=== PATIENT | female | born 1990 | race African-American/Black ===

== ENCOUNTER 2021-12-16 14:26 | Emergency (ER) | payer SELFPAY ==
[~2021-12-16 14:26] MED LIST: BIRTH CONTROL; LITH150C PO
== END 2021-12-16 14:43 | disposition left against medical advice (07) ==
LOC: ER 14:26
DX: Z53.21 Procedure and treatment not carried out due to patient leaving prior to being seen by health care provider (principal)

== ENCOUNTER 2022-06-19 06:07 | Emergency (ER) | payer SELFPAY ==
[~2022-06-19] VITALS: Ht 170.2 cm; Wt 70.0 kg
[2022-06-19 08:23] LABS: BASOPHILS % 0.3 % (0.0-2.0); EOSINOPHILS % 0.1 % (0.0-5.0); HEMATOCRIT. 41.6 % (36.0-48.0); HEMOGLOBIN. 13.8 g/dL (12.0-16.0); LYMPHOCYTES % 28.8 % (20.0-50.0); MEAN CORPUSCULAR HEMOGLOBIN 33.8 pg (28.0-32.0); MEAN CORPUSCULAR VOLUME 102.1 fL (81.0-99.0); MEAN PLATELET VOLUME 8.6 fl (7.4-10.4); MONOCYTES % 7.9 % (2.0-8.0); NEUTROPHILS % 62.9 % (40.0-76.0); PLATELET 216 x1000/uL (130-400); RED BLOOD CELL COUNT 4.08 mill/uL (4.2-5.4); RED CELL DISTRIBUTION WIDTH 13.2 % (11.6-14.6)
[2022-06-19] MEDS ORDERED: LORAZEPAM 2MG/ML CPJ IM NR (08:30)
[2022-06-19 08:31] LABS: CHLORIDE 105 mEq/L (98-107)
[2022-06-19 08:35] LABS: HCG SCREEN NEGATIVE
[2022-06-19 08:37] LABS: ETHANOL BLOOD < 10 mg/dL
[2022-06-19] MEDS ORDERED: HALOPERIDOL LACTATE 5MG/ML VIAL IM ONE (08:45)
[2022-06-19 09:06] LABS: CLARITY URINE CLEAR (CLEAR); COLOR URINE YELLOW (YELLOW); KETONES URINE TRACE (NEGATIVE); LEUKOCYTE ESTERASE URINE NEGATIVE (NEGATIVE); NITRITE URINE NEGATIVE (NEGATIVE); OCCULT BLOOD URINE NEGATIVE (NEGATIVE); PH URINE 6.5 (4.5-8.0); PROTEIN URINE NEGATIVE (NEGATIVE); SPECIFIC GRAVITY URINE 1.018 (1.005-1.030)
[2022-06-19 09:29] LABS: *AMPHETAMINES SCREEN URINE NEGATIVE (NEGATIVE); *BARBITURATES SCREEN URINE NEGATIVE (NEGATIVE); *BENZODIAZEPINES SCREEN URINE NEGATIVE (NEGATIVE); *COCAINE SCREEN URINE NEGATIVE (NEGATIVE); CANNABINOID URINE SCREEN NEGATIVE (NEGATIVE); METHADONE URINE SCREEN NEGATIVE (NEGATIVE); OPIATES URINE SCREEN NEGATIVE (NEGATIVE); PHENCYCLIDINE URINE SCREEN NEGATIVE (NEGATIVE)
[2022-06-19] MEDS ORDERED: OLANZAPINE 5MG TABLET ODT PO SCH (15:15)
[2022-06-19 18:00] VITALS: BP 120/66
== END 2022-06-19 20:09 | disposition still patient (30) ==
LOC: ER 06:07
DX: F23 Brief psychotic disorder (principal); F31.9 Bipolar disorder, unspecified
CPT/HCPCS: 36415; 80053; 80305; 80320; 81003; 81025; 83690; 84703; 85025; 96372; 99285; J1630; J2060; Z7610; G0480